=== PATIENT | female | born 1985 | race Caucasian/White ===

== ENCOUNTER 2016-05-17 15:31 | Outpatient (CLI) | payer MEDICAID ==
[~2016-05-17] VITALS: Ht 152.4 cm; Wt 79.5 kg
[2016-05-17 15:30] VITALS: BP 120/64
[2016-05-17] MEDS ORDERED: PREN1TAB25 PO (18:46)
== END 2016-05-17 19:00 | disposition home or self-care (01) ==
LOC: LDOP 15:31
PROVIDERS: ATTEND Obstetrics & Gynecology
DX: O26.893 Other specified pregnancy related conditions, third trimester (principal); R10.30 Lower abdominal pain, unspecified; Z3A.37 37 weeks gestation of pregnancy
CPT/HCPCS: 59025; 81001; 87086; 99201; G0463

== ENCOUNTER 2016-05-25 12:17 | Inpatient (IN) | payer MEDICAID ==
[~2016-05-25] VITALS: Ht 160 cm; Wt 79.5 kg
[~2016-05-25 12:17] MED LIST: PREN1TAB25 PO
[2016-05-25 12:41] VITALS: BP 116/64
[2016-05-25] MEDS ORDERED: OXYTOCIN 30U/ 0.9% NaCL 500ML 500 ML IV PRN (16:38)
[2016-05-25] MEDS: D5%-LACTATED RINGERS 1,000 ML IV SCH (16:38)
[2016-05-25] MEDS ORDERED: OXYTOCIN 30U/ 0.9% NaCL 500ML 500 ML IV ONE (16:38)
[2016-05-25] MEDS ORDERED: FENTANYL PF 100 MCG/2ML ONE (16:46)
[2016-05-25] MEDS ORDERED: FENTANYL PF 100 MCG/2ML IV PRN (17:00)
[2016-05-25] MEDS ORDERED: ONDANSETRON 2MG/ML, 2ML IVPush PRN (17:00)
[2016-05-25] MEDS ORDERED: FENTANYL PF 100 MCG/2ML IVPush PRN (17:00)
[2016-05-25 17:51] LABS: HEMOGLOBIN 12.6 g/dL (11.7-16.4)
[2016-05-25] MEDS ORDERED: OXYTOCIN 30U/ 0.9% NaCL 500ML 500 ML ONE ×2 (18:06→20:42)
[2016-05-25] MEDS ORDERED: NEWBORN KIT ONE (18:06)
[2016-05-25] MEDS ORDERED: LIDOCAINE 1%, 20ML ONE (18:49)
[2016-05-25] MEDS ORDERED: MISOPROSTOL 200 MCG TABLET ONE (18:49)
[2016-05-25] MEDS: OXYTOCIN 30U/ 0.9% NaCL 500ML 500 ML IV SCH (19:22)
[2016-05-25] MEDS ORDERED: DOCUSATE 100 MG CAPSULE PO PRN (19:30)
[2016-05-25] MEDS ORDERED: OXYcodone/APAP 5/325MG TABLET PO PRN ×2 (19:30)
[2016-05-25] MEDS ORDERED: MISOPROSTOL 200 MCG TABLET PR PRN (19:30)
[2016-05-25] MEDS: LACTATED RINGERS 1,000 ML IV SCH (20:53)
[2016-05-25 21:40] VITALS: BP 116/67
[2016-05-25 22:30] VITALS: BP 110/72
[2016-05-26 00:30] VITALS: BP 114/69
[2016-05-26] MEDS: D5%-LACTATED RINGERS 1,000 ML IV SCH ×2 (00:38→08:38)
[2016-05-26] MEDS: LACTATED RINGERS 1,000 ML IV SCH ×2 (00:38→08:38)
[2016-05-26 04:15] VITALS: BP 113/66
[2016-05-26] MEDS: OXYTOCIN 30U/ 0.9% NaCL 500ML 500 ML IV SCH (05:22)
[2016-05-26 08:35] VITALS: BP 102/59
[2016-05-26 12:30] VITALS: BP 117/67
[2016-05-26] MEDS: PRENATAL VIT/IRON/FA 1 EACH TABLET PO SCH (13:10)
[2016-05-26 16:25] VITALS: BP 111/71
[2016-05-26 21:06] VITALS: BP 117/67
[2016-05-27] MEDS ORDERED: OXYC-302 PO (00:56)
[2016-05-27] MEDS ORDERED: IBUP-1222 PO (00:57)
[2016-05-27 07:49] VITALS: BP 113/73
[2016-05-27] MEDS: PRENATAL VIT/IRON/FA 1 EACH TABLET PO SCH (08:09)
[2016-05-27] MEDS: IBUPROFEN 600 MG TABLET PO PRN ×2 (08:40→17:32)
== END 2016-05-27 16:30 | disposition home or self-care (01) | DRG 775 ==
LOC: LDOP 12:17 → LDIP 16:38 → 2NW 21:22
PROVIDERS: ADMIT Obstetrics & Gynecology; ATTEND Obstetrics & Gynecology
PROC: 10E0XZZ Delivery of Products of Conception, External Approach (ICD-10-PCS; principal; 2016-05-25)
PROC: 0W8NXZZ Division of Female Perineum, External Approach (ICD-10-PCS; 2016-05-25)
DX: O34.03 Maternal care for unspecified congenital malformation of uterus, third trimester (principal); Q51.2 Other doubling of uterus; Z37.0 Single live birth; Z3A.38 38 weeks gestation of pregnancy
CPT/HCPCS: 36415; 85025; 86850; 86900; J7120